=== PATIENT | female | born 1985 | race Caucasian/White ===

== ENCOUNTER 2023-01-08 17:09 | Emergency (ER) | payer OTHER, MEDICAID ==
[2023-01-08] MEDS: Sodium Chloride 0.9% 1,000 ML IV ONE (17:09)
[2023-01-08] MEDS ORDERED: Sodium Chloride 0.9% 10 ML Syringe FLUSH PRN (17:18)
[2023-01-08] MEDS: Sodium Chloride 0.9% 50 ML IV SCH (17:52)
[2023-01-08] MEDS: Iopamidol 755 Mg/ML 75 ML Bottle IVPUSH ONE (17:52)
[2023-01-08 18:38] LABS: CORONAVIRUS COVID-19 NAA POSITIVE (NEGATIVE)
== END 2023-01-08 18:55 | disposition home or self-care (01) ==
LOC: KA.ED 17:09
DX: U07.1 COVID-19 (principal)
CPT/HCPCS: 0240U; 74177; 81001; 81025; 96360; 99284; 99284-25; J7030; Q9967